=== PATIENT | female | born 1995 | race Caucasian/White ===

== ENCOUNTER → 2021-12-28 | Outpatient (CLI) | payer MEDICAID, SELFPAY ==
[2021-12-28 12:08] LABS: Amphetamine Urine VISTA NEGATIVE (<1000 ng/mL); Barbiturate Urine VISTA NEGATIVE (< 200 ng/mL); Benzodiazepine Urine VISTA NEGATIVE (< 200 ng/mL); Cocaine Urine VISTA NEGATIVE (< 300 ng/mL); Ecstacy Urine VISTA NEGATIVE (< 500 ng/mL); Methadone Urine VISTA NEGATIVE (< 300 ng/mL); PCP Urine VISTA NEGATIVE (< 25 ng/mL); THC Urine VISTA NEGATIVE (< 50 ng/mL); Vista UDS pH Range 5
[2021-12-29 21:07] LABS: Chlamydia By Nucleic Acid AMP Negative (Negative)
[2021-12-30 16:43] LABS: Gonococcus By Nucleic Acid AMP Negative (Negative)
[2022-01-01 16:57] LABS: HPV Reflexed? NOT INDICATED
== END | disposition home or self-care (01) ==
PROVIDERS: PCP Nurse Practitioner Family; Visit Provider Obstetrics & Gynecology
DX: O09.90 Supervision of high risk pregnancy, unspecified, unspecified trimester (principal); Z12.4 Encounter for screening for malignant neoplasm of cervix; Z3A.00 Weeks of gestation of pregnancy not specified; N89.8 Other specified noninflammatory disorders of vagina
CPT/HCPCS: 80307; 87070; 87077; 87086; 87088; 87186; 87205; 87491; 87591; 88175; G0145

== ENCOUNTER → 2022-01-04 | Outpatient (CLI) | payer MEDICAID, SELFPAY ==
[2022-01-04 11:33] LABS: Absolute Lymphocyte Count 1.25 X10^3/uL (0.83-4.51); Absolute Neutrophil Count 4.7 X10^3/uL (2.0-7.7); Basophil# 0.08 X10^3/uL; Basophil% 1.2 % (0-1); Eosinophil# 0.22 X10^3/uL; Eosinophils% 3.2 % (0-5); Hematocrit 34.5 % (37-47); Hemoglobin 10.9 g/dL (12.0-15.0); Lymphocyte # 1.25 X10^3/ul (0.83-4.51); Lymphocyte % 18.4 % (19-41); Mean Corp Hgb Conc 31.6 g/dL (32-36); Mean Corpuscular Hgb 26.2 pg (27.0-32.0); Mean Corpuscular Volume 82.9 fL (81-99); Mean Platelet Vol. 10.7 fl (6.2-12.0); Monocyte# 0.56 X10^3/uL; Monocyte% 8.2 % (0-10); NRBC Flagged by Analyzer 0 % (0-5); Neutrophil # 4.65 X10^3/uL (2.7-7.7); Neutrophil % 68.4 % (47-70); Platelet Count 265 K/mm3 (150-450); RBC Distribution Width CV 17.2 % (11.6-14.6); RBC Distribution Width SD 51.6 fl (35.1-43.9); Red Blood Count 4.16 M/mm3 (4.2-5.4); White Blood Count 6.8 K/mm3 (4.4-11.0)
[2022-01-04 12:23] LABS: NATERA MAILED SPECIMEN
[2022-01-04 12:32] LABS: HIV - WCH Non-Reactive (Nonreactive); Hepatitis B Surface Antigen Non-Reactive (Nonreactive); Hepatitis C Antibody Non-Reactive (Nonreactive); Rubella IgG Reactive (Nonreactive); Syphilis Antibodies Non-reactive
== END | disposition home or self-care (01) ==
LOC: PAVLAB 11:03
PROVIDERS: PCP Nurse Practitioner Family; Referring Provider Obstetrics & Gynecology; Visit Provider Obstetrics & Gynecology
DX: O09.90 Supervision of high risk pregnancy, unspecified, unspecified trimester (principal); Z31.430 Encounter of female for testing for genetic disease carrier status for procreative management; Z3A.00 Weeks of gestation of pregnancy not specified
CPT/HCPCS: 36415; 85025; 86703; 86762; 86780; 86803; 86850; 86900; 86901; 87340

== ENCOUNTER 2022-02-13 22:50 | Emergency (ER) | payer MEDICAID, SELFPAY ==
[2022-02-13 22:51] VITALS: BP 114/71; PULSE 93; RESP 18; TEMP 36.1; O2SAT 100; BMI 18.3
--- NOTE | 2022-02-13 23:21 | ED.RN ---
around 2144, patient went to the bathroom and had dark red to brown blood when she wiped. Nothing since then. FHT 136.
--- NOTE | 2022-02-14 00:08 | ED.VIS.FEGU ---
HPI HPI - Female History of Present Illness Chief Complaint: Informant: patient Pain Pain: Positive for - (abd pain) Onset: Today Context: Gradual Onset Timing: Continuous Quality: Positive for Cramping and Aching Location: - (R upper abd/fundus) Current Severity: Mild Maximum Severity: Moderate Worsened by: - (nothing) Relieved by: - (nothing; no tx prior to coming to ED) Bleeding Issue: Positive for Vaginal bleeding Onset: Today Current Severity: Spotting Associated Symptoms Associated Symptoms: Negative for Dysuria, Frequency, Urgency or Hematuria P: 1 Ab: 2 Narrative Narrative: Patient is 16 weeks . She has had ultrasound verifying intrauterine and that it is a boy. Earlier this evening she started having right upper abdominal pain, was not associated with a meal or nausea/vomiting, and when she went to urinate shortly thereafter, she urinated fine without any issues or blood but then when she wiped there was vaginal blood. PFSH PFS Medical History Family history of clubfoot History of miscarriage, currently Hx of fracture of ankle Hx of fracture of femur Home Medications multivitamin no.47-iron fum 27 mg-folate no.1 1 mg-dha 300 mg capsule (PNV-DHA) cap PO 12/22/21 [History Last Taken Unknown] Allergy/AdvReac Type Severity Reaction Status Date / Time No Known Allergies Allergy Verified 02/13/22 22:50 Family History Brother Congenital heart defect Mother Ovarian cancer Surgical History Hx of cholecystectomy Social History adopted: No household members: significant other and children housing: house number of children: 1 current occupational status: unemployed pets and animals: Yes pets and animals: other details: [place] history of recent travel: No sexually active: Yes Smoking Status: Current every day smoker tobacco type: cigarettes quit status: considering quitting counseling given: provider counseling alcohol intake: never substance use type: former substance user well-balanced diet: daily or most days caffeine: Yes Type: carbonated beverages Number of servings: 1 eating out: rarely or never during the past year weight has: decreased > 10 lbs what type of physical activity do you participate in: none marquis/sabianism: None seatbelt use: always do you feel safe at home: Yes additional social history: [employer] ED Constitutional Constitutional ED: Denies chills or fever(s) Eyes Eyes: Denies change in vision or diplopia ENT ENT ED: Denies rhinorrhea or sore throat Cardiovascular Cardiovascular: Denies chest pain or palpitations Respiratory/Chest Respiratory/Chest: Denies cough or dyspnea Gastrointestinal Gastrointestinal: Reports abdominal pain; Denies diarrhea, nausea or vomiting Genitourinary Genitourinary ED: Reports as per HPI; Denies dysuria or hematuria Musculoskeletal Musculoskeletal: Denies back pain or neck pain Integumentary Denies abscess or rash Neurologic Neurologic: Denies headache(s), paresthesias or weakness Psychiatric Psychiatric: Denies anxiety or suicidal thoughts EXAM Physical Exam Const Vital Signs: 02/13/22 22:51 Temperature 96.9 F L Temperature Source Temporal Pulse Rate 93 Respiratory Rate 18 Blood Pressure 114/71 Blood Pressure Mean 85 Pulse Ox 100 Oxygen Delivery Method Room Air Positive well nourished and well developed General Appearance ED: well developed and NAD HEENT Reports moist mucous membranes normocephalic and atraumatic Eyes PERRL and EOMs intact bilaterally Neck full ROM and supple Resp normal respiratory effort and clear to auscultation bilaterally Cardio regular rate, regular rhythm and no murmurs GI non-distended GI Narrative: Very mild tenderness at the top of the fundus may be toward the right. Negative Metcalf's, no subcostal tenderness. Mildly tender throughout the pelvis. No guarding or rebound. Distended to almost the umbilicus consistent with secondary menstrual . No other areas of abdominal tenderness. Auscultation: normoactive bowel sounds Palpation: soft Back/Spine no CVA tenderness General Back: other FROM Extremity normal to inspection General Extremety ED: Negative for edema, pulses abnormal or tenderness General Extremity: Negative for edema or pulses abnormal Neuro oriented x3, CN's II-XII intact bilaterally and no sensory deficits noted Sensorium / Orientation: awake and alert Motor Exam: strength 5/5 throughout Skin no rashes or lesions noted and no wounds MDM MDM MDM Narrative Medical decision making narrative: Patient is well-appearing has a very benign abdomen normal vital signs. heart tones were in the 130s, I did a bedside sonogram, there is excellent movement, the placenta is more superior in the uterus and is not previa, heart tones 144 at this time. It only she needs any further work-up right now, I advised close outpatient follow-up with her [facility] she is comfortable with that plan given Tylenol for the pain. Discharge Plan Triage Chief Complaint: Other Complaint: Vag Bld, Preg ED Provider: Yoel Dominguez Dx/Rx/DC Orders Clinical Impression: Abdominal pain during in second trimester, Vaginal bleeding in patient at less than 20 weeks gestation Instructions: ED Abdominal Pain Unkn Cause Fem Prescriptions: No Action PNV-DHA 27 mg iron-1 mg -300 mg capsule PO Primary Care Provider: Marnie Regan NP Referrals: [facility], your [Other] - As soon as possible Disposition Disposition: Home, Self Care
[2022-02-14] MEDS: Acetaminophen 500 MG Tablet 1000 MG PO (00:14)
== END 2022-02-14 00:18 | disposition home or self-care (01) ==
PROVIDERS: Emergency Provider Emergency Medicine; PCP Nurse Practitioner Family; Visit Provider Emergency Medicine
DX: O20.9 Hemorrhage in early pregnancy, unspecified (principal); O99.332 Smoking (tobacco) complicating pregnancy, second trimester; Z3A.16 16 weeks gestation of pregnancy; F17.210 Nicotine dependence, cigarettes, uncomplicated; O26.852 Spotting complicating pregnancy, second trimester
CPT/HCPCS: 99283

== ENCOUNTER → 2022-02-22 | Outpatient (CLI) | payer MEDICAID, SELFPAY | END | disposition home or self-care (01) | PROVIDERS: PCP Nurse Practitioner Family; Visit Provider Nurse Practitioner Women's Health | DX: O23.40 Unspecified infection of urinary tract in pregnancy, unspecified trimester (principal) | CPT/HCPCS: 87086; 87088 ==

== ENCOUNTER → 2022-04-27 | Outpatient (CLI) | payer MEDICAID, SELFPAY ==
--- NOTE | 2022-04-27 14:10 | US_ITS ---
EXAM: US SECOND OR THIRD TRIMESTER , TRANSABDOMINAL CLINICAL INDICATION: growth TECHNIQUE: Transabdominal obstetrical ultrasound of the maternal pelvis and a second or third trimester with image documentation. This report was created using [employer] report generation technology. COMPARISON: None available FINDINGS: FETUS: Single live fetus in cephalic sensation. HEART RATE: cardiac rate is 160 bpm. PRESENTATION: PLACENTA: Posterior placenta with grade 1 maturity change. No placenta previa. No abruption. AMNIOTIC FLUID: Amniotic fluid index is 19.2 cm which is normal for the gestational age. ANATOMY: Anatomical survey not documented. BIOMETRICS GESTATIONAL AGE: Estimated gestational age by measurements is 26 weeks 5 days. Clinical gestational age is 26 weeks 4 days. TONY: TONY July 30, 2022. EFW: Estimated weight is 1021 g. BPD: Biparietal diameter is 6.6 cm. HC: Head circumference is 25.0 cm. AC: Abdominal circumference is 23.7 cm. FL: Femur length is 4.7 cm. MATERNAL: UTERUS: Normal. No myometrial mass. CERVIX: Cervix measures 4.9 cm in length. ADNEXA: Normal. No adnexal masses. FREE FLUID: None. US/OB Limited With Biometrics IMPRESSION: Single live 26 week 4 day intrauterine gestation with apparent normal growth. Electronically Signed: Viral Lopez MD at 16:07 EST ,
== END | disposition home or self-care (01) ==
PROVIDERS: PCP Nurse Practitioner Family; Visit Provider Obstetrics & Gynecology
DX: O43.119 Circumvallate placenta, unspecified trimester (principal); Z3A.26 26 weeks gestation of pregnancy
CPT/HCPCS: 76816

== ENCOUNTER → 2022-05-04 | Outpatient (CLI) | payer MEDICAID, SELFPAY ==
[2022-05-04 13:14] LABS: Absolute Lymphocyte Count 0.84 X10^3/uL (0.83-4.51); Absolute Neutrophil Count 4.7 X10^3/uL (2.0-7.7); Basophil# 0.05 X10^3/uL; Basophil% 0.8 % (0-1); Eosinophil# 0.15 X10^3/uL; Eosinophils% 2.3 % (0-5); Hematocrit 32.2 % (37-47); Hemoglobin 10.4 g/dL (12.0-15.0); Lymphocyte # 0.84 X10^3/ul (0.83-4.51); Lymphocyte % 12.9 % (19-41); Mean Corp Hgb Conc 32.3 g/dL (32-36); Mean Corpuscular Volume 89.7 fL (81-99); Mean Platelet Vol. 10.1 fl (6.2-12.0); Monocyte# 0.56 X10^3/uL; Monocyte% 8.6 % (0-10); NRBC Flagged by Analyzer 0 % (0-5); Neutrophil # 4.73 X10^3/uL (2.7-7.7); Neutrophil % 72.8 % (47-70); Platelet Count 218 K/mm3 (150-450); RBC Distribution Width CV 13.1 % (11.6-14.6); RBC Distribution Width SD 42.9 fl (35.1-43.9); Red Blood Count 3.59 M/mm3 (4.2-5.4); White Blood Count 6.5 K/mm3 (4.4-11.0)
[2022-05-04 13:34] LABS: Glucose Challenge Gest 1H 50g 158 mg/dL (70-140)
[2022-05-04 14:06] LABS: HIV - WCH Non-Reactive (Nonreactive); Syphilis Antibodies Non-reactive
== END | disposition home or self-care (01) ==
LOC: PAVLAB 12:26
PROVIDERS: PCP Nurse Practitioner Family; Referring Provider Obstetrics & Gynecology; Visit Provider Obstetrics & Gynecology
DX: Z34.90 Encounter for supervision of normal pregnancy, unspecified, unspecified trimester (principal)
CPT/HCPCS: 36415; 82950; 85025; 86703; 86780

== ENCOUNTER → 2022-06-06 | Outpatient (CLI) | payer MEDICAID, SELFPAY ==
[2022-06-06 09:27] LABS: Glucose GTT-Gestation. Fasting 81 mg/dL (<105)
[2022-06-06 10:37] LABS: Glucose GTT-Gestational 1 Hr 167 mg/dL (<190)
[2022-06-06 10:59] LABS: Glucose GTT-Gestational 2 Hr 143 mg/dL (<165)
[2022-06-06 12:23] LABS: Glucose GTT-Gestational 3 Hr 96 L (<145)
== END | disposition home or self-care (01) ==
LOC: LAB 07:58
PROVIDERS: PCP Nurse Practitioner Family; Referring Provider Obstetrics & Gynecology; Visit Provider Obstetrics & Gynecology
DX: O99.810 Abnormal glucose complicating pregnancy (principal); Z13.1 Encounter for screening for diabetes mellitus; Z3A.00 Weeks of gestation of pregnancy not specified
CPT/HCPCS: 36415; 82951; 82952

== ENCOUNTER → 2022-06-08 | Outpatient (CLI) | payer MEDICAID, SELFPAY ==
--- NOTE | 2022-06-08 11:27 | US_ITS ---
STUDY: SECOND AND THIRD TRIMESTER OBSTETRICAL ULTRASOUND - LIMITED REASON FOR EXAM: Female, 27 years old growth LMP: 10/23/2021. PRIOR ULTRASOUND: Comparison is made with prior study 04/27/2022. TECHNIQUE: Transabdominal TECHNICAL QUALITY: Adequate. FINDINGS: There is a single intrauterine fetus. The fetus is in a cephalic presentation. There is demonstrated cardiac activity with a heart rate of 144 bpm. There is a normal amniotic fluid volume. The largest amniotic fluid pocket measures 3.3 cm. The amniotic fluid index (RUBINA) is 12.28 cm. The placenta is posterior in location and is not low lying. There are Grade 1 placental changes. The cervix measures 4.35 cm in length. BIOMETRY: BPD: 8.29 cm: 33 weeks, 3 days HC: 30.64 cm: 34 weeks, 1 days AC: 29.59 cm: 33 weeks, 4 days FL: 5.82 cm: 30 weeks, 3 days Age by LMP: 32 weeks, 4 days. TONY by LMP: 07/30/2022. age by prior US: 32 weeks, 5 days. TONY by prior US: 07/29/2022. age by current US: 33 weeks, 2 days. TONY by current US: 07/25/2022. Estimated weight: 2034 grams, +/- 305 grams, 44.5 percentile. US/OB Limited With Biometrics IMPRESSION: Single live intrauterine gestation with a mean gestational age of 32 weeks and 5 days. The measurements obtained today fall within the normal expected range. Electronically Signed: Torrey Almanzar MD at 10:12 [facility] ,
[2022-06-08 11:46] VITALS: BP 89/51; PULSE 63; RESP 18; O2SAT 97
[2022-06-08 12:00] VITALS: BP 106/63; PULSE 82; RESP 16; O2SAT 97
[2022-06-08 12:05] VITALS: BP 107/66; PULSE 64; RESP 16; O2SAT 99
[2022-06-08 12:20] VITALS: BP 112/71; PULSE 76; RESP 18; O2SAT 100
== END | disposition home or self-care (01) ==
LOC: US 11:26
PROVIDERS: PCP Nurse Practitioner Family; Referring Provider Registered Nurse; Visit Provider Registered Nurse
DX: O43.119 Circumvallate placenta, unspecified trimester (principal); Z3A.00 Weeks of gestation of pregnancy not specified
CPT/HCPCS: 76816

== ENCOUNTER → 2022-07-06 | Outpatient (CLI) | payer MEDICAID, SELFPAY ==
--- NOTE | 2022-07-06 11:25 | US_ITS ---
STUDY: SECOND AND THIRD TRIMESTER OBSTETRICAL ULTRASOUND - LIMITED REASON FOR EXAM: Female, 27 years old routine survey, growth LMP: 10/23/2021 PRIOR ULTRASOUND: 06/08/2022 TECHNIQUE: Transabdominal TECHNICAL QUALITY: Adequate. FINDINGS: There is a single intrauterine fetus. The fetus is in a cephalic presentation. There is demonstrated cardiac activity with a heart rate of 131 bpm. There is a normal amniotic fluid volume. The largest amniotic fluid pocket measures 4.8 x 2.5 cm. The amniotic fluid index (RUBINA) is 12.75 cm. The placenta is posterior in location and is not low lying. There is a likely circumvallate placenta which is nonvascular, echogenic and measures 6.4 x 2.1 x 4.5 cm.. This structure should be followed closely by ultrasound to ensure no complications arise. There is also a band of amnion floating in the amniotic fluid separate from the chorion, this is seen on images 30 through 36. There are Grade 1 placental changes. The cervix measures 2.9 cm in length. BIOMETRY: BPD: 9.40 cm: 38 weeks, 2 days HC: 34.04 cm: 39 weeks, 1 days AC: 33.28 cm: 37 weeks, 1 days FL: 6.60 cm: 34 weeks, 0 days age by prior US: 33 weeks, 2 days. TONY by prior US: 07/25/2022. age by current US: 37 weeks, 2 days. TONY by current US: 07/25/2022. Estimated weight: 3003 grams, +/- 450 grams, 56.8 percentile. US/OB Limited With Biometrics IMPRESSION: Single live intrauterine at 37 weeks 2 days by current ultrasound with TONY of 07/25/2022. Normal growth noted since the previous study. Since the previous study, there is a thin band of amnion from the chorion and floating within the amniotic fluid there is also a circumvallate placenta floating within the endometrial fluid which is nonvascular and measures 6.4 x 2.1 x 4.5 cm.] Sonographic follow-up of the structures recommended to assure they do not cause complications. There is normal growth as noted and normal movement of the fetus during this exam Electronically Signed: Sigifredo Alaniz MD at 13:15 EDT ,
== END | disposition home or self-care (01) ==
PROVIDERS: PCP Nurse Practitioner Family; Referring Provider Obstetrics & Gynecology; Visit Provider Obstetrics & Gynecology
DX: O43.119 Circumvallate placenta, unspecified trimester (principal); Z3A.00 Weeks of gestation of pregnancy not specified
CPT/HCPCS: 76816; 87081

== ENCOUNTER → 2022-10-03 | Outpatient (CLI) | payer MEDICAID, SELFPAY ==
[2022-10-03 10:24] LABS: Mucous, Urine 0 SEEN /hpf (<or=2+)
[2022-10-03 10:36] LABS: Color, Urine Yellow (Yellow); Glucose, Dipstick Normal (Normal); Ketone-Dipstick 5 mg/dl (Negative); Leukocyte Esterase-Dipstick 25 /ul (Negative); Nitrite-Dipstick Negative (Negative); Occult Blood-Urine 250 /ul (Negative); Protein-Dipstick 30 mg/dl (Negative); Specific Gravity, Urine 1.025 (1.002-1.030); Urine Clarity Cloudy (Clear); Urine Urobilinogen Normal (Normal)
[2022-10-03 11:03] LABS: Urine Bilirubin Dipstick 1 mg/dL (Negative)
[2022-10-03 11:11] LABS: Amorphous Sediment 2+
[2022-10-03 11:12] LABS: Bacteria 1+ /hpf (None Seen); Red Blood Cells-Urine 25-50 SEEN /hpf (0-5); Squamous Epithelial Cells - UA 0-5 SEEN /hpf (5-10); White Blood Cells 0-5 SEEN /hpf (0-5)
== END | disposition home or self-care (01) ==
LOC: LABSPEC 10:10
PROVIDERS: PCP Nurse Practitioner Family; Referring Provider Nurse Practitioner Family; Visit Provider Nurse Practitioner Family
DX: R30.0 Dysuria (principal)
CPT/HCPCS: 81001; 87086